=== PATIENT | female | born 1975 | race Caucasian/White ===

== ENCOUNTER → 2022-01-26 11:01 | Outpatient (REF) | payer OTHER, SELFPAY | LOC: ANHLAB 11:01 | PROVIDERS: PCP Internal Medicine; Visit Provider Nurse Practitioner | DX: L72.0 Epidermal cyst (principal) | CPT/HCPCS: 88305 ==

== ENCOUNTER 2023-04-30 15:37 | Outpatient (NON) | payer OTHER, SELFPAY | END 2023-04-30 15:38 | disposition home or self-care (01) | LOC: ANHLAB 15:39 | PROVIDERS: Visit Provider Nurse Practitioner | DX: R22.9 Localized swelling, mass and lump, unspecified (principal) | CPT/HCPCS: 87070; 87075; 87205 ==

== ENCOUNTER 2025-02-23 10:30 | Outpatient (CLI) | payer OTHER, SELFPAY ==
--- NOTE | ~2025-02-23 | MR_ITS ---
MRI of the left knee Clinical history: Pain Technique: Coronal proton density and proton density-weighted images, sagittal proton-density and T2 fat-sat images, and axial proton-density fat-saturated images were acquired. Findings: Anterior and posterior cruciate ligament are intact. Medial collateral ligament and the lat eral collateral ligament complex are intact. Popliteus tendon is intact. Probable radial tear at the posterior root of the medial meniscus. No lateral meniscal tear seen. 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 There is moderate to high-grade chondral thi nning of the medial joint line. There is moderate to high-grade chondral thinning at the lateral join t line. Small tricompartmental osteophytes are present. Extensor mechanism is intact. No significant joint effusion. Minimal Morales's cyst. Impression: Radial tear at the posterior root of the medial meniscus. Mild to moderate tricompartmental degenerative change, as detailed above. Minimal Morales's cyst. Reviewed, dictated and finalized at location . Impression: Radial tear at the posterior root of the medial meniscus. Mild to moderate tricompartmental degenerative change, as detailed above. Minimal Morales's cyst.
== END 2025-02-23 10:31 | disposition home or self-care (01) ==
LOC: GOSHIMG 10:30
PROVIDERS: PCP Physician Assistant Surgical; Visit Provider Physician Assistant Surgical
DX: S83.242A Other tear of medial meniscus, current injury, left knee, initial encounter (principal); X58.XXXA Exposure to other specified factors, initial encounter; M17.12 Unilateral primary osteoarthritis, left knee
CPT/HCPCS: 73721